=== PATIENT | male | born 2000 | race Caucasian/White ===

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

== ENCOUNTER 2022-03-05 15:56 | Emergency (ER) | payer OTHER ==
[~2022-03-05] VITALS: Ht 172.7 cm; Wt 63.5 kg
== END 2022-03-05 19:27 | disposition home or self-care (01) ==
LOC: ED 15:56
DX: S46.911A Strain of unspecified muscle, fascia and tendon at shoulder and upper arm level, right arm, initial encounter (principal); X50.9XXA Other and unspecified overexertion or strenuous movements or postures, initial encounter; Y93.89 Activity, other specified; Y92.89 Other specified places as the place of occurrence of the external cause; Y99.8 Other external cause status

== ENCOUNTER 2022-03-06 06:22 | Emergency (ER) | payer OTHER ==
[~2022-03-06] VITALS: Ht 172.7 cm; Wt 63.5 kg
== END 2022-03-06 07:03 | disposition home or self-care (01) ==
LOC: ED 06:22
DX: S46.911A Strain of unspecified muscle, fascia and tendon at shoulder and upper arm level, right arm, initial encounter (principal); X50.1XXA Overexertion from prolonged static or awkward postures, initial encounter; Y93.89 Activity, other specified; Y92.89 Other specified places as the place of occurrence of the external cause; Y99.8 Other external cause status

== ENCOUNTER 2025-05-06 19:41 | Emergency (ER) | payer SELFPAY ==
[~2025-05-06] VITALS: Ht 172.7 cm; Wt 63.5 kg
[2025-05-06] MEDS ORDERED: diphenhydrAMINE hydrochloride 50 MG/ML VIAL IV ONE (21:05)
[2025-05-06] MEDS ORDERED: FAMOTIDINE 50 ML IV ONE (21:05)
[2025-05-06] MEDS ORDERED: MEDROL DOSEPAK4 MG PO (22:24)
== END 2025-05-06 22:31 | disposition home or self-care (01) ==
LOC: ED 19:41
DX: T63.441A Toxic effect of venom of bees, accidental (unintentional), initial encounter (principal); L53.0 Toxic erythema; M79.651 Pain in right thigh; F17.200 Nicotine dependence, unspecified, uncomplicated; Z88.1 Allergy status to other antibiotic agents; Y92.89 Other specified places as the place of occurrence of the external cause